=== PATIENT | female | born 2000 | race Caucasian/White ===

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

== ENCOUNTER 2022-03-12 13:40 | Emergency (ER) | payer BC, SELFPAY ==
[2022-03-12 14:06] VITALS: BP 144/82; PULSE 119; RESP 20; TEMP 36.8; O2SAT 99; BMI 30.2
--- NOTE | 2022-03-12 14:40 | DI.US.S_ITS ---
PROCEDURE: US PELVIC COMPLETE INDICATIONS: RIGHT LOWER QUADRANT PAIN. CANNOT FEEL IUD STRINGS. TECHNIQUE: Real-time scanning was performed of the pelvic organs, with image documentation. Additional endovaginal scanning was necessary due to incomplete visualization of the adnexal and endometrial structures by transabdominal scanning. COMPARISON: None. FINDINGS: Uterus: Uterus is retroverted and normal in size at 8.0 x 4.0 x 4.3 cm. The myometrium is homogeneous. The endometrium measures 7.6 mm combined thickness. An IUD is present within the endometrial canal. Ovaries: The right ovary measures 5.9 x 4.5 x 4.6 cm, with a calculated ovarian volume of 63.5 cc. The left ovary measures 3.8 x 2.5 x 2.4 cm, with a calculated ovarian volume of 11.9 cc. The ovaries have a normal sonographic appearance. There are fewer than 12 follicles in the right ovary. The left ovary is poorly visualized. There is a 5.1 x 4.2 x 3.9 cm cyst with internal septations in the right ovary. Other: No pathologic free abdominal or pelvic fluid. IMPRESSION: 1. Large cystic lesion within the right ovary with internal septations suggesting a hemorrhagic cyst. Differential considerations include hydrosalpinx. Follow-up in 6-12 weeks is recommended to ensure resolution of this finding. 2. Poor characterization of the left ovary but likely within normal limits. 3. IUD located within the uterine fundus as expected. We strive to produce accurate, complete, and clear reports of imaging services. To assist us in improving patient care, this report was composed using standard report templates and voice recognition software. Therefore, it may contain abnormal punctuation, insertions and/or omissions. Occasional wrong-word or sound-alike substitutions may occur. Though we review the report and make efforts to correct it, we do recommend that the report be read carefully in proper context to recognize any text inaccuracies. Dictated by: Claudine Cooper M.D. on 03/12/2022 at 15:56 Approved by: Claudine Cooper M.D. on 03/12/2022 at 16:03
[2022-03-12 15:13] LABS: Bacteria Urine Few (2-10); RBC Urine 1-5/HPF (0-5/HPF); Squamous Epithelial Cell Urine 5-10 /HPF (0-5/HPF); WBC Urine 5-10/HPF (0-5/HPF)
[2022-03-12 15:14] LABS: Culture Indicated Urine Cult Not Indicated
[2022-03-12 15:52] LABS: Add Manual Diff / Slide Review NO; Basophils Absolute Auto 0 /uL (0-100); Basophils Percent Auto 0.4 % (0-2); Eosinophils Absolute Auto 100 /uL (0-450); Eosinophils Percent Auto 0.7 % (2-4); Hemoglobin 13.1 g/dL (12.0-16.0); Lymphocytes Absolute Auto 1600 /uL (1100-4500); Lymphocytes Percent Auto 17.7 % (25-40); Mean Corpuscular HGB Conc 33.5 % (30-36); Mean Corpuscular Hemoglobin 29.6 PG (26-34); Mean Corpuscular Volume 88.4 fL (80-100); Monocytes Absolute Auto 300 /uL (0-900); Monocytes Percent Auto 3.7 % (3-14); Neutrophils Absolute Auto 7100 /uL (1500-7000); Neutrophils Percent Auto 77.5 % (50-75); Platelet Count 242 X10^3/uL (150-400); Red Blood Cell Count 4.42 X10^6/uL (4.0-5.2); White Blood Cell Count 9.2 X10^3/uL (4.5-11.0)
[2022-03-12 15:55] LABS: Alanine Aminotransferase 14 IU/L (<35); Albumin 4.5 g/dL (3.5-5.0); Albumin Globulin Ratio 1.3 (1.0-2.8); Alkaline Phosphatase 73 U/L (38-126); Aspartate Aminotransferase 24 IU/L (14-36); BUN Creatinine Ratio 10.7 (6-22); Bilirubin Total 0.3 mg/dL (0.2-1.3); Blood Urea Nitrogen 11 mg/dL (7-17); Calcium 9.7 mg/dL (8.4-10.2); Carbon Dioxide 24 mmol/L (22-32); Chloride 108 mmol/L (98-107); Estimated Glomerular Filt Rate > 60 mL/min (>60); Globulin 3.5 g/dL (1.7-4.1); Glucose 101 mg/dL (70-100); HEMOLYSIS < 15 (0-50); Lipase 53 U/L (23-300); Potassium 4.4 mmol/L (3.4-5.1); Sodium 140 mmol/L (137-145)
--- NOTE | 2022-03-12 16:57 | ED_ITS ---
HPI - Abdominal Pain <Michael Kaiser PA-C - Last Filed: 03/12/22 18:21> General Chief Complaint: Abdominal Pain Stated Complaint: Abd pain- lower rt side. referred by [facility] Time Seen by Provider: 03/12/22 14:40 Source: patient Mode of arrival: Ambulatory History of Present Illness HPI narrative: Patient is a 21-year-old female who presents to the emergency room today with complaint of right-sided lower abdominal pain for about 3 days. Patient states the pain started about 3 days ago and when it 1st started with about a 2-3 on the pain scale and now is about a 5 or 6. Patient states she feels like the juliann n is slowly getting worse. Patient describes the pain as a stabbing pain that also feels like a ripping tearing sensation in her right lower quadrant. Patient also states the pain radiates to the left. Denies any origination of pain on the left. Also denies radiation of pain to the back. Patient admits to having and IUD placed back in December and was initially concerned about the placement of it. Went to the walk-in clinic this morning where she had some labs done to rule out urinary tract infection. Was also advised by the walk-in clinic provider to come to the emergency room to rule out any emergent concerns. Ultrasound was done and revealed a cyst on the patient's right ovary and cor rect placement of the IUD. On physical examination patient has pain that appears to be more which has been identified on the ultrasound. Related Data Home Medications Medication Instructions Recorded Confirmed aripiprazole 10 mg tablet 12 mg PO DAILY 01/08/20 01/08/20 calcium carb-magnesium carb PO 01/08/20 01/08/20 duloxetine 30 mg capsule,delayed 30 mg PO DAILY 01/08/20 01/08/20 release sprinkle ketorolac 10 mg tablet 10 mg PO Q6H PRN 01/08/20 01/08/20 topiramate 200 mg capsule,extended 200 mg PO DAILY 01/08/20 01/08/20 release 24 hr Previous Rx's Medication Instructions Recorded ergotamine 1 mg-caffeine 100 mg See Rx Instructions PO .COMPLEX 11/14/21 tablet #10 tabs prochlorperazine maleate 10 mg 10 mg PO BID PRN migraine, nausea 11/14/21 tablet (Compazine) #14 tabs oxycodone-acetaminophen 2.5 mg-325 1 tab PO Q8H PRN pain #10 tabs 03/12/22 mg tablet (Percocet) Allergies Allergy/AdvReac Type Severity Reaction Status Date / Time No Known Drug Allergies Allergy Verified 01/08/20 13:08 Review of Systems <Michael Kaiser PA-C - Last Filed: 03/12/22 18:21> Review of Systems Narrative: R.O.S.: General: No fever, chills or fatigue. Cardiovascular: No chest pain or palpitations Respiratory: No S.O.B. HEENT: No congestion, ear pain, rhinorrhea, sore throat or tinnitus Gastrointestinal: Abdominal pain without N/V Skin: No rash or associated abnormalities Musculoskeletal: No pain in muscles or joints, no limitation of range of motion, no paresthesia or numbness. ?? Neurological: Awake, alert and in not apparent distress. No Headaches, changes in vision or other related neurological concerns. Patient History <Michael Kaiser PA-C - Last Filed: 03/12/22 18:21> Medical History Bilateral knee pain Bilateral thigh pain Social History Smoking Status: Never smoker Smoking Status: Never smoker Substance Use Type: marijuana Exam <Michale Kaiser PA-C - Last Filed: 03/12/22 18:21> Narrative Exam Narrative: Physical Exam: ? General: normal appearance, well developed, well nourished, alert, and awake. Not in acute distress. ? Head: Normocephalic, no lesions. Chest: Lungs CTAB, no rales, rhonchi or wheezes. ?? Heart: RRR, no murmurs, rubs or gallops. Eyes: PERRLA, EOM's full, conjunctivae clear. ? Neuro: Physiological, no localizing findings, CN3-12 intact. ?? Extremities: Warm, well perfused, FROM, no deformities, no edema. ?? Skin: Normal, no rashes, no lesions noted. ?? PSYCHIATRIC: The mood is good, no blunted affect. Speech is clear. Thought process is linear, thought content is appropriate. The voice is without significant inflection. Gastrointestinal: Soft; Tender to palp at RLQ and LLQ; ND; Neg CVA tenderness; Pos BS with mild right sided rebound tenderness. No scars or major deformities noted on Visual Inspection. Initial Vital Signs Initial Vital Signs: Vital Signs Temperature 98.3 F 03/12/22 14:06 Pulse Rate 119 H 03/12/22 14:06 Respiratory Rate 20 03/12/22 14:06 Blood Pressure 144/82 H 03/12/22 14:06 Pulse Oximetry 99 03/12/22 14:06 Oxygen Delivery Method 03/12/22 14:06 <Chapincito Chiang DO - Last Filed: 03/12/22 18:37> Initial Vital Signs Initial Vital Signs: Vital Signs Temperature 98.3 F 03/12/22 14:06 Pulse Rate 119 H 03/12/22 14:06 Respiratory Rate 20 03/12/22 14:06 Blood Pressure 144/82 H 03/12/22 14:06 Pulse Oximetry 99 03/12/22 14:06 Oxygen Delivery Method 03/12/22 14:06 Course <Michael Kaiser PA-C - Last Filed: 03/12/22 18:21> Orders Ordered: ED Orders 03/12/22 14:31 Urine Microscopic Stat 03/12/22 14:40 US pelvic complete Stat 03/12/22 15:36 Complete Blood Count AUTO DIFF Stat Comprehensive Metabolic Panel Stat Lipase Stat 03/12/22 17:15 CT abdomen pelvis w con Stat Discontinued Medications Oxycodone/Acetaminophen (Oxycodone/Acetaminophen 5/325 Tablet) 1 tab PO NOW ONE Stop: 03/12/22 16:57 Last Admin: 03/12/22 17:12 Dose: 1 tab Documented By: AT Vital Signs Vital signs: Vital Signs - 8 hr 03/12/22 14:06 03/12/22 17:05 Temperature 98.3 F Pulse Rate 119 H 108 H Respiratory Rate 20 18 Blood Pressure 144/82 H 133/77 Pulse Oximetry 99 99 Oxygen Delivery Method Room Air Room Air <Chapincito Chiang DO - Last Filed: 03/12/22 18:37> Orders Ordered: ED Orders 03/12/22 14:31 Urine Microscopic Stat 03/12/22 14:40 US pelvic complete Stat 03/12/22 15:36 Complete Blood Count AUTO DIFF Stat Comprehensive Metabolic Panel Stat Lipase Stat 03/12/22 17:15 CT abdomen pelvis w con Stat Discontinued Medications Oxycodone/Acetaminophen (Oxycodone/Acetaminophen 5/325 Tablet) 1 tab PO NOW ONE Stop: 03/12/22 16:57 Last Admin: 03/12/22 17:12 Dose: 1 tab Documented By: AT Vital Signs Vital signs: Vital Signs - 8 hr 03/12/22 14:06 03/12/22 17:05 Temperature 98.3 F Pulse Rate 119 H 108 H Respiratory Rate 20 18 Blood Pressure 144/82 H 133/77 Pulse Oximetry 99 99 Oxygen Delivery Method Room Air Room Air MDM - Abdominal Pain <Michael Kaiser PA-C - Last Filed: 03/12/22 18:21> Lab Data Result diagrams: 03/12/22 15:36 03/12/22 15:36 Labs: Lab Results 03/12/22 03/12/22 03/12/22 Range/Units 14:31 15:36 15:36 WBC 9.2 (4.5-11.0) X10^3/uL RBC 4.42 (4.0-5.2) X10^6/uL Hgb 13.1 (12.0-16.0) g/dL Hct 39.0 (36-46) % MCV 88.4 (80-100) fL MCH 29.6 (26-34) PG MCHC 33.5 (30-36) % RDW 14.0 (11.6-14.8) % Plt Count 242 (150-400) X10^3/uL Neut % (Auto) 77.5 H (50-75) % Lymph % (Auto) 17.7 L (25-40) % [place] % (Auto) 3.7 (3-14) % Eos % (Auto) 0.7 L (2-4) % Baso % (Auto) 0.4 (0-2) % Neut # (Auto) 7100 H (1444-8019) /uL Lymph # (Auto) 1600 (5510-1960) /uL [place] # (Auto) 300 (0-900) /uL Eos # (Auto) 100 (0-450) /uL Baso # (Auto) 0 (0-100) /uL Sodium 140 (137-145) mmol/L Potassium 4.4 (3.4-5.1) mmol/L Chloride 108 H (98-107) mmol/L Carbon Dioxide 24 (22-32) mmol/L BUN 11 (7-17) mg/dL Creatinine 1.03 (0.52-1.04) mg/dL Estimated GFR > 60 (>60) mL/min BUN/Creatinine Ratio 10.7 (6-22) Glucose 101 H (70-100) mg/dL Calcium 9.7 (8.4-10.2) mg/dL Total Bilirubin 0.3 (0.2-1.3) mg/dL AST 24 (14-36) IU/L ALT 14 (<35) IU/L Alkaline Phosphatase 73 (38-126) U/L Total Protein 8.0 (6.3-8.2) g/dL Albumin 4.5 (3.5-5.0) g/dL Globulin 3.5 (1.7-4.1) g/dL Albumin/Globulin Ratio 1.3 (1.0-2.8) Lipase 53 (23-300) U/L Urine RBC 1-5/hpf (0-5/HPF) Urine WBC 5-10/hpf H (0-5/HPF) Ur Squamous Epith Cells 5-10 /hpf H (0-5/HPF) Urine Bacteria Few (2-10) H (None) Ur Culture Indicated? Cult not indicated Point of care testing: Point of Care Testing Test Results Negative Urine Dip Bedside Urine Glucose Negative Bedside Urine Bilirubin - Negative Bedside Urine Ketone - Negative Urine Specific [place] 1.020 Bedside Urine Occult Blood +++ Bedside Urine pH 6.0 Bedside Urine Protein - Negative Bedside Urine Urobilinogen - Negative Bedside Urine Nitrite - Negative Bedside Urine Leukocytes - Negative Esterase Imaging Data US - abdomen: Radiologist's Impression: PROCEDURE:? US PELVIC COMPLETE ? INDICATIONS:? RIGHT LOWER QUADRANT PAIN. CANNOT FEEL IUD STRINGS. ? TECHNIQUE:? Real-time scanning was performed of the pelvic organs, with image documentation.? Additional endovaginal scanning was necessary due to incomplete visualization of the adnexal and endometrial structures by transabdominal scanning.? ? COMPARISON:? None. ? FINDINGS:? ?? Uterus:? Uterus is retroverted and normal in size at 8.0 x 4.0 x 4.3 cm. The myometrium is homogeneous. ? The endometrium measures 7.6 mm combined thickness.? An IUD is present within the endometrial canal. ? Ovaries:? The right ovary measures 5.9 x 4.5 x 4.6 cm, with a calculated ovarian volume of 63.5 cc. The left ovary measures 3.8 x 2.5 x 2.4 cm, with a calculated o varian volume of 11.9 cc. The ovaries have a normal sonographic appearance.? There are fewer than 12 follicles in the right ovary.? The left ovary is poorly visualized.? There is a 5.1 x 4.2 x 3.9 cm cyst with internal septations in the right ovary. ? Other:? No pathologic free abdominal or pelvic fluid. ? ? IMPRESSION:? ? 1. Large cystic lesion within the right ovary with internal septations sugg esting a hemorrhagic cyst.? Differential considerations include hydrosalpinx.? Follow-up in 6-12 weeks is recommended to ensure resolution of this finding. ? 2. Poor characterization of the left ovary but likely within normal limits. ? 3. IUD located within the uterine fundus as expected.? ? ? We strive to produce accurate, complete, and clear reports of imaging services. To assist us in improving patient care, this report was composed using standard report templates and voice recognition software. Therefore, it may contain abnormal punctuation, insertions and/or omissions. Occasional wrong-word or sound-alike substitutions may occur. Though we review the report and make efforts to correct it, we do recommend that the report be read carefully in proper context to recognize any text inaccur acies. ? ? Dictated by: Claudine Cooper M.D. on 03/12/2022 at 15:56 ? ? Approved by: Claudine Cooper M.D. on 03/12/2022 at 16:03 ? CT scan - abdomen/pelvis: Radiologist's Impression: PROCEDURE:? CT ABDOMEN PELVIS W CON ? INDICATIONS:? Abdominal pain ? TECHNIQUE:? After the administration of oral and intravenous contrast, axial sections were acquired from the lung bases to the pubic symphysis.? Coronal and sagittal reformats were performed.? For radiation dose reduction, the following was used:? automated exposure control, adjustment of mA and/or kV according to patient size.? ? COMPARISON:None. ? FINDINGS:? Image quality:? Excellent.? ? Lung bases:? Unremarkable.? ? Heart:? No significant findings. ? ? ABDOMEN: Liver:? Unremarkable.? ? Gallbladder:? Unremarkable.? ? Biliary ducts:? Unremarkable.? ? Pancreas:? Unremarkable.? ? Spleen:? Unremarkable.? ? Adrenal Glands:? Unremarkable.? ? Kidneys and Ureters:? Unremarkable.? ? ? Stomach and Bowel:? Stomach, small bowel loops, and colon are unremarkable.? The appendix is normal Peritoneum:? No abnormal intraperitoneal fluid.? No free air.? ? Ventral Wall: ? No hernia.? Abdominal Nodes:? No retroperitoneal or mesenteric adenopathy by size criteria.? Vessels:? Aorta and inferior vena cava are normal in size.? PELVIS: Pelvic Organs:? 4.4 cm right ovarian cyst and 2.5 cm left ovarian cyst. Bladder:? Unremarkable.? ? Pelvic Nodes: No enlarged lymph nodes.? Miscellaneous: No inguinal hernias are seen. ? ? ? Bones:? Unremarkable.? ? ? IMPRESSION:? ? 1. No acute abdominal or pelvic abnormality. 2. 4.4 cm right ovarian cyst and 2.5 cm left ovarian cyst.? ? ? Dictated by: Magdy Trinidad M.D. on 03/12/2022 at 17:45 ? ? Approved by: Magdy Trinidad M.D. on 03/12/2022 at 17:48? MDM Narrative Medical decision making narrative: Patient continue female presents emergency room today with complaint right-sided abdominal pain that started 3 days pain was initially at 2 to 3 and now is about a 5-6 on a scale of 1-10. Pain feels like a stabbing, ripping or tearing sensation in the abdomen. Ultrasound revealed a right ovarian cyst with suggested hemorrhagia. Urine did not confirm a urinary tract infection at this time. Physical exam did not relieve all suspicions possible additional etiology of the patient's complaint. Discussed Dr. Chiang of and he agrees with my plan to order an abdominal ultrasound contrast. Patient has complained of pain was also given Percocet to help with pain. CT pelvis ultrasound was unremarkable for any etiology other than the ovarian cyst. Patient released with pain medicine management and advised to follow-up with her PCP provider for referral to a transmission builder regarding ovarian cyst. Patient agrees with plan <Chapincito Chiang, - Last Filed: 03/12/22 18:37> Lab Data Labs: Lab Results 03/12/22 03/12/22 03/12/22 Range/Units 14:31 15:36 15:36 WBC 9.2 (4.5-11.0) X10^3/uL RBC 4.42 (4.0-5.2) X10^6/uL Hgb 13.1 (12.0-16.0) g/dL Hct 39.0 (36-46) % MCV 88.4 (80-100) fL MCH 29.6 (26-34) PG MCHC 33.5 (30-36) % RDW 14.0 (11.6-14.8) % Plt Count 242 (150-400) X10^3/uL Neut % (Auto) 77.5 H (50-75) % Lymph % (Auto) 17.7 L (25-40) % [place] % (Auto) 3.7 (3-14) % Eos % (Auto) 0.7 L (2-4) % Baso % (Auto) 0.4 (0-2) % Neut # (Auto) 7100 H (9732-3822) /uL Lymph # (Auto) 1600 (5832-3100) /uL [place] # (Auto) 300 (0-900) /uL Eos # (Auto) 100 (0-450) /uL Baso # (Auto) 0 (0-100) /uL Sodium 140 (137-145) mmol/L Potassium 4.4 (3.4-5.1) mmol/L Chloride 108 H (98-107) mmol/L Carbon Dioxide 24 (22-32) mmol/L BUN 11 (7-17) mg/dL Creatinine 1.03 (0.52-1.04) mg/dL Estimated GFR > 60 (>60) mL/min BUN/Creatinine Ratio 10.7 (6-22) Glucose 101 H (70-100) mg/dL Calcium 9.7 (8.4-10.2) mg/dL Total Bilirubin 0.3 (0.2-1.3) mg/dL AST 24 (14-36) IU/L ALT 14 (<35) IU/L Alkaline Phosphatase 73 (38-126) U/L Total Protein 8.0 (6.3-8.2) g/dL Albumin 4.5 (3.5-5.0) g/dL Globulin 3.5 (1.7-4.1) g/dL Albumin/Globulin Ratio 1.3 (1.0-2.8) Lipase 53 (23-300) U/L Urine RBC 1-5/hpf (0-5/HPF) Urine WBC 5-10/hpf H (0-5/HPF) Ur Squamous Epith Cells 5-10 /hpf H (0-5/HPF) Urine Bacteria Few (2-10) H (None) Ur Culture Indicated? Cult not indicated Point of care testing: Point of Care Testing Test Results Negative Urine Dip Bedside Urine Glucose Negative Bedside Urine Bilirubin - Negative Bedside Urine Ketone - Negative Urine Specific [place] 1.020 Bedside Urine Occult Blood +++ Bedside Urine pH 6.0 Bedside Urine Protein - Negative Bedside Urine Urobilinogen - Negative Bedside Urine Nitrite - Negative Bedside Urine Leukocytes - Negative Esterase Discharge Plan Departure Patient Disposition: Home Clinical Impression: Ovarian cyst Instructions: DI for Ovarian Cyst Activity Restrictions/Additional Instructions: *You have been diagnosed with right ovarian cyst. Labs and diagnostic studies unremarkable MRI additional emergent concerns. You have been discharged with Percocet to manage your pain. I suggest she follow up through primary care provider a referral to transmission builder regarding your ovarian cyst. Please return to the emergency department for any emergent concerns. [ ] *What to do: *Please continue to take your regular medications as directed. [ ] New medication prescriptions sent to your pharmacy: [ ] [x] New medication written as a paper prescription [ ] No new medications given *Please follow up with your primary care provider in 2-3 days, call for an appointment. Let them know you were seen in the Emergency Department and that we ask that you be seen in follow up. We will electronically transmit a record of today's note if your PCP is in our system *If you do not have a primary care provider please contact the [facility] Resource line at [phone]. They will ask some questions about your medical history and help get you set up with a doctor in the community. *Return to Emergency Department if you should have any new, worsening or concerning symptoms, such as [fever greater than 101 F, shaking chills, worsening pain, persistent vomiting or other bothersome symptoms] Prescriptions: New oxycodone-acetaminophen [Percocet] 2.5-325 mg tablet 1 tab PO Q8H PRN (Reason: pain) Qty: 10 0RF No Action duloxetine 30 mg capsule, delayed rel sprinkle 30 mg PO DAILY ketorolac 10 mg tablet 10 mg PO Q6H PRN aripiprazole 10 mg tablet 12 mg PO DAILY topiramate 200 mg capsule,extended release 24hr 200 mg PO DAILY calcium carb-magnesium carb PO ergotamine-caffeine 1-100 mg tablet See Rx Instructions .ROUTE .COMPLEX Qty: 10 0RF Rx Instructions: take 2 tablets at onset of headache; if no relief, may repeat 1 tablet after at least 2 hrs; max = 3 tabs/24 hrs prochlorperazine maleate [Compazine] 10 mg tablet 10 mg PO BID PRN (Reason: migraine, nausea) Qty: 14 0RF Referrals: Zahira Martinez PA-C [Primary Care Provider] - <Chapincito Chiang, - Last Filed: 03/12/22 18:37> Cosign ED Attending Cosignature Attestation: Dr Chiang Co-Sign Statement: I was available for consultation during this patient's emergency department visit. This chart is signed by myself for administrative purposes only. I did not have direct contact with this patient during this visit. They were seen independently by the APC.
[2022-03-12 17:05] VITALS: BP 133/77; PULSE 108; RESP 18; O2SAT 99
[2022-03-12] MEDS: OXYCODONE/ACETAMINOPHEN 5/325 TABLET 1 TAB PO (17:12)
--- NOTE | 2022-03-12 17:15 | DI.CT.S_ITS ---
PROCEDURE: CT ABDOMEN PELVIS W CON INDICATIONS: Abdominal pain TECHNIQUE: After the administration of oral and intravenous contrast, axial sections were acquired from the lung bases to the pubic symphysis. Coronal and sagittal reformats were performed. For radiation dose reduction, the following was used: automated exposure control, adjustment of mA and/or kV according to patient size. COMPARISON:None. FINDINGS: Image quality: Excellent. Lung bases: Unremarkable. Heart: No significant findings. ABDOMEN: Liver: Unremarkable. Gallbladder: Unremarkable. Biliary ducts: Unremarkable. Pancreas: Unremarkable. Spleen: Unremarkable. Adrenal Glands: Unremarkable. Kidneys and Ureters: Unremarkable. Stomach and Bowel: Stomach, small bowel loops, and colon are unremarkable. The appendix is normal Peritoneum: No abnormal intraperitoneal fluid. No free air. Ventral Wall: No hernia. Abdominal Nodes: No retroperitoneal or mesenteric adenopathy by size criteria. Vessels: Aorta and inferior vena cava are normal in size. PELVIS: Pelvic Organs: 4.4 cm right ovarian cyst and 2.5 cm left ovarian cyst. Bladder: Unremarkable. Pelvic Nodes: No enlarged lymph nodes. Miscellaneous: No inguinal hernias are seen. Bones: Unremarkable. IMPRESSION: 1. No acute abdominal or pelvic abnormality. 2. 4.4 cm right ovarian cyst and 2.5 cm left ovarian cyst. Dictated by: Magdy Trinidad M.D. on 03/12/2022 at 17:45 Approved by: Magdy Trinidad M.D. on 03/12/2022 at 17:48
== END 2022-03-12 18:43 | disposition home or self-care (01) ==
PROVIDERS: Emergency Medicine; Emergency Provider Physician Assistant; PCP Physician Assistant
DX: N83.201 Unspecified ovarian cyst, right side (principal); Z97.5 Presence of (intrauterine) contraceptive device
CPT/HCPCS: 36415; 74177; 76830; 76856; 80053; 81003; 81015; 81025; 83690; 85025; 93975; 99284; Q9967